=== PATIENT | female | born 1965 | race Hispanic/Latino ===

== ENCOUNTER 2022-06-19 01:16 | Emergency (ER) | payer BC ==
[~2022-06-19] VITALS: Ht 165.1 cm; Wt 83.9 kg
[2022-06-19 02:27] VITALS: BP 127/88
[2022-06-19] MEDS ORDERED: SOLU-MEDROL 125MG VIAL ONE (02:52)
[2022-06-19] MEDS ORDERED: SOLU-MEDROL 125MG VIAL IVP ONE (03:00)
[2022-06-19 03:06] LABS: EOSINOPHILS % (AUTO) 4.6 % (0.0-8.0); HEMATOCRIT 37.3 % (36-48); LYMPHOCYTES % (AUTO) 28.3 % (21.0-51.0); MEAN CORPUSCULAR HEMOGLOBIN 30.5 pg (27.0-33.0); MEAN CORPUSCULAR HGB CONC 33.8 g/dL (32.0-36.0); MEAN CORPUSCULAR VOLUME 90.3 fL (79-99); MONOCYTES % (AUTO) 8.9 % (3.0-13.0); PLATELET COUNT (AUTO) 287 K/uL (130-400); RED BLOOD CELL COUNT(AUTO) 4.13 MIL/uL (4.00-5.50); RED CELL DISTRIBUTION WIDTH 12.6 % (11.0-15.5); WHITE BLOOD COUNT (AUTO) 5.2 K/uL (4.8-10.8)
[2022-06-19 03:15] LABS: CREATININE 1.1 mg/dL (0.5-1.5); POTASSIUM 4.4 mmol/L (3.5-5.1)
[2022-06-19 03:20] LABS: ALBUMIN 3.7 g/dL (3.5-5.0); TOTAL PROTEIN, SERUM 7.5 g/dL (6.0-8.3)
[2022-06-19] MEDS ORDERED: METH4TAB3 PO (03:30)
== END 2022-06-19 03:39 | disposition home or self-care (01) ==
LOC: EDH 01:16
DX: M79.18 Myalgia, other site (principal); M54.50 Low back pain, unspecified; I10 Essential (primary) hypertension; Z98.82 Breast implant status
CPT/HCPCS: 99284; 96374; 93971; 84484; 80053; 85025; 36415; J2930